=== PATIENT | male | born 1985 | race Two or more races ===

== ENCOUNTER → 2019-12-30 | Emergency (ER) | payer OTHER ==
[~2019-12-30] VITALS: Ht 177.8 cm; Wt 107.5 kg
[2019-12-30 21:00] VITALS: BP 156/98
== END | disposition home or self-care (01) ==
LOC: ER 16:33
DX: S86.912A Strain of unspecified muscle(s) and tendon(s) at lower leg level, left leg, initial encounter (principal); X58.XXXA Exposure to other specified factors, initial encounter; Y93.01 Activity, walking, marching and hiking; Y92.69 Other specified industrial and construction area as the place of occurrence of the external cause; Y99.8 Other external cause status
CPT/HCPCS: 73590; 93971